=== PATIENT | female | born 1965 | race American Indian/Alaskan Native ===

== ENCOUNTER 2016-10-25 16:05 | Outpatient (CLI) | payer BC ==
--- NOTE | 2016-10-25 16:47 | XRay Report ---
AP and lateral of the cervical spine. History: Neck pain. Findings: The vertebral body heights and disc spaces are well-maintained. There is straightening of the lordotic curvature, but alignment is otherwise normal. There is no prevertebral soft tissue edema. The odontoid is intact. Impression: No significant findings.
== END 2016-10-25 16:06 | disposition home or self-care (01) ==
LOC: SPVIMAG 16:05
PROVIDERS: ATTEND Internal Medicine
DX: M54.2 Cervicalgia (principal)
CPT/HCPCS: 72040